=== PATIENT | male | born 1995 | race Caucasian/White ===

== ENCOUNTER 2025-05-01 06:15 | Outpatient (CLI) | payer SELFPAY ==
[2025-05-01 07:14] LABS: HF Add Manual Diff No
[2025-05-01 07:34] LABS: Hematocrit 47.4 % (37-53); Hemoglobin 16.00 g/dL (11.27-16.99); Mean Corpuscular HGB Conc 33.8 g/dL (30-55); Mean Corpuscular Hemoglobin 28.6 pg (27-33); Mean Corpuscular Volume 84.8 fl (82-101); Nucleated Red Blood Cells % 0 %; Platelet Count 323 10^3/cmm (157-399); Red Blood Count 5.59 10^6/uL (3.85-5.65); White Blood Count 6.78 10^3/uL (3.29-11.43)
[2025-05-01 07:52] LABS: Alanine Aminotransferase 78 U/L (0-41); Albumin Level 4.4 g/dL (3.5-5.2); Alkaline Phosphatase 74 U/L (40-130); Anion Gap 13.2 (5-19); Aspartate Amino Transferase 53 U/L (0-40); Blood Urea Nitrogen 16 mg/dL (6-20); Calcium 9.4 mg/dL (8.5-10.5); Carbon Dioxide 25 mmol/L (22-29); Chloride 104 mmol/L (98-107); Cholesterol 158 mg/dL (0-200); Globulin 3.1 g/dL (1.3-4.6); Glucose 99 mg/dL (65-115); HDL Cholesterol 27 mg/dL (60-100); Osmolality Calculated 287 mOsm/kg (285-295); Potassium 4.2 mmol/L (3.5-5.1); Sodium 138 mmol/L (136-145); Total Protein 7.5 g/dL (6.6-8.7); Triglycerides 147 mg/dL (0-150)
== END 2025-05-01 06:16 | disposition home or self-care (01) ==
LOC: LAB 06:20
PROVIDERS: PCP Family Medicine; Visit Provider Dermatology
DX: Z01.89 Encounter for other specified special examinations (principal)